=== PATIENT | female | born 1990 | race Caucasian/White ===

== ENCOUNTER 2020-06-30 13:47 | Emergency (ER) | payer OTHER ==
--- NOTE | 2020-06-30 13:56 | PDOC ---
Rapid Medical Evaluation Time Seen by Provider: 06/30/20 13:49 Medical Evaluation: Allergies Allergy/AdvReac Type Severity Reaction Status Date / Time diphenhydramine HCl Allergy Intermediate Itching Verified 08/30/13 18:27 [From Benadryl] latex Allergy Intermediate Rash Verified 08/30/13 18:28 mushroom Allergy Severe Difficulty Uncoded 08/30/13 18:27 Breathing 06/30/20 13:51 I have performed a brief in-person evaluation of this patient The patient presents with a chief complaint of: SI. H/o anxiety, PTSD, bipolar, seizures, asthma. Pt BIB for SI. Pt states at 3pm yesterday, she took 90, 1mg tablets of minipress (prazosin) which she takes for her PTSD. Took meds in an attempt to kill herself per pt. Drank ETOH and smoked weed today. Feeling dizzy only. Multiple suicidal attempts in past including pills and cutting. Has lost f/u with psych. Pertinent physical exam findings:crying at triage, continues to have SI I have ordered the following:ekg, labs, 1:1 The patient will proceed to the ED for further evaluation Discharge Disposition - Diagnosis Suicidal behavior Qualifiers: Attempted self-injury: with attempted self-injury Qualified Code(s): T14.91XA - Suicide attempt, initial encounter - Referrals - Patient Instructions - Post Discharge Activity
[2020-06-30 13:59] VITALS: BMI 38.0
--- NOTE | 2020-06-30 14:30 | PDOC ---
History of Present Illness - General Chief Complaint: Suicidal Stated Complaint: DETOX Time Seen by Provider: 06/30/20 13:49 - History of Present Illness Initial Comments: 06/30/20 14:28 30F with PMH seizure disorder, asthma, bipolar I, anxiety, PTSD, brought to ED by after a suicide attempt yesterday at 3pm, when she ingested 90 1mg tablets of prazosin. States she has been depressed recently with sad mood and decreased interest because she misses her kids, and has also been using cocaine, alcohol, marijuana, and benzos. Still has SI, and has had previous attempts. Denies AH/VH or HI. No gun at home. Is in the middle of transferring her outpatient psych/rehab program. PMH: as above PSH: cholecystecomy, Meds: prazosin, gabapentin, keppra, abilify, seroquel, klonapin, hydroxyzine Allergies Allergy/AdvReac Type Severity Reaction Status Date / Time diphenhydramine HCl Allergy Intermediate Itching Verified 06/30/20 13:53 [From Benadryl] latex Allergy Intermediate Rash Verified 06/30/20 13:53 mushroom Allergy Severe Difficulty Uncoded 06/30/20 13:53 Breathing ROS GENERAL/CONSTITUTIONAL: No fever or chills. No weakness. HEAD, EYES, EARS, NOSE AND THROAT: No change in vision. No ear pain or discharge. No sore throat. CARDIOVASCULAR: No chest pain or shortness of breath RESPIRATORY: No cough, wheezing, or hemoptysis. GASTROINTESTINAL: No nausea, vomiting, diarrhea or constipation. GENITOURINARY: No dysuria, frequency, or change in urination. MUSCULOSKELETAL: No joint or muscle swelling or pain. No neck or back pain. SKIN: No rash NEUROLOGIC: No headache, vertigo, loss of consciousness, or change in strength/sensation. ENDOCRINE: No increased thirst. No abnormal weight change HEMATOLOGIC/LYMPHATIC: No anemia, easy bleeding, or history of blood clots. ALLERGIC/IMMUNOLOGIC: No hives or skin allergy. PE GENERAL: Awake, alert, and fully oriented, in no acute distress HEAD: No signs of trauma, normocephalic, atraumatic EYES: PERRLA, EOMI, sclera anicteric, conjunctiva clear ENT: Auricles normal inspection, hearing grossly normal, nares patent, oropharynx clear without exudates. Moist mucosa NECK: Normal ROM, supple, no lymphadenopathy, JVD, or masses LUNGS: No distress, speaks full sentences, clear to auscultation bilaterally HEART: Regular rate and rhythm, normal S1 and S2, no murmurs, rubs or gallops, peripheral pulses normal and equal bilaterally. ABDOMEN: Soft, nontender, normoactive bowel sounds. No guarding, no rebound. N o masses EXTREMITIES : Normal inspection, Normal range of motion, no edema. No clubbing or cyanosis. NEUROLOGICAL: Cranial nerves II through XII grossly intact. Normal speech, normal gait, no focal sensorimotor deficits SKIN: Warm, Dry, normal turgor, no rashes or lesions noted Vital Signs Temp Pulse Resp BP Pulse Ox 111 H 20 114/71 99 06/30/20 13:57 06/30/20 13:57 06/30/20 13:57 06/30/20 13:57 30F with PMH seizure disorder, asthma, bipolar I, anxiety, PTSD, brought to ED by after a suicide attempt yesterday at 3pm, when she ingested 90 1mg tablets of prazosin. Will get EKG and labs for medical clearance, psych consult, and anticipate transfer to inpatient psych facility. 06/30/20 15:46 Dr. Milian left a voicemail for Dr. Manning, psychiatry, asking for a call back. 06/30/20 16:46 Dr. Milian got a call from Dr. Manning, who will come and see the patient. EKG: Labs: notable for WBC 12.8 w/o shift, alk phos 124, CK 233, pos THC, alcohol 72.9, negative cocaine/benzos Laboratory Tests 06/30/20 06/30/20 06/30/20: 16:00 16:00 WBC 12.8 H RBC 4.70 Hgb 12.6 Hct 37.7 MCV 80.2 MCH 26.8 MCHC 33.4 RDW 14.6 Plt Count 287 D MPV 8.8 Absolute Neuts (auto) 9.0 H Neutrophils % 70.6 Lymphocytes % 22.9 Monocytes % 5.5 Eosinophils % 0.6 Basophils % 0.4 D Nucleated RBC % 0 Sodium Potassium Chloride Carbon Dioxide Anion Gap BUN Creatinine Est GFR (CKD-EPI)AfAm Est GFR (CKD-EPI)NonAf Random Glucose Calcium Total Bilirubin AST ALT Alkaline Phosphatase Creatine Kinase Creatine Kinase Index CK-MB (CK-2) Troponin I Total Protein Albumin Lipase Urine Color Yellow Urine Appearance Clear Urine pH 6.0 Ur Specific [place] 1.011 Urine Protein Negative Urine Glucose (UA) Negative Urine Ketones Negative Urine Blood Negative Urine Nitrite Negative Urine Bilirubin Negative Urine Urobilinogen 0.2 Ur Leukocyte Esterase Negative Urine HCG, Qual Negative Salicylates < 1.7 L Opiates Screen Methadone Screen Acetaminophen < 2.0 Barbiturate Screen Phencyclidine Screen Ur Amphetamines Screen MDMA (Ecstasy) Screen Benzodiazepines Screen Cocaine Screen U Marijuana (THC) Screen Alcohol, Quantitative 06/30/20 06/30/20 06/30/20 16:00 16:00 16:00 WBC RBC Hgb Hct MCV MCH MCHC RDW Plt Count MPV Absolute Neuts (auto) Neutrophils % Lymphocytes % Monocytes % Eosinophils % Basophils % Nucleated RBC % Sodium 142 Potassium 3.7 Chloride 109 H Carbon Dioxide 25 Anion Gap 8 BUN 5.1 L Creatinine 1.0 Est GFR (CKD-EPI)AfAm 86.33 Est GFR (CKD-EPI)NonAf 74.49 Random Glucose 107 H Calcium 8.1 L Total Bilirubin 0.4 AST 32 ALT 34 Alkaline Phosphatase 124 H Creatine Kinase 233 H Creatine Kinase Index 0.6 CK-MB (CK-2) 1.4 Troponin I < 0.02 Total Protein 6.8 Albumin 3.3 L Lipase 82 Urine Color Urine Appearance Urine pH Ur Specific [place] Urine Protein Urine Glucose (UA) Urine Ketones Urine Blood Urine Nitrite Urine Bilirubin Urine Urobilinogen Ur Leukocyte Esterase Urine HCG, Qual Salicylates Opiates Screen Negative Methadone Screen Negative Acetaminophen Barbiturate Screen Negative Phencyclidine Screen Negative Ur Amphetamines Screen Negative MDMA (Ecstasy) Screen Negative Benzodiazepines Screen Negative Cocaine Screen Negative U Marijuana (THC) Screen Positive A* Alcohol, Quantitative 72.9 H 06/30/20 19:20 Called [facility] transfer center and was informed that they do not have any beds 06/30/20 18:34 Received call from Poison Control. No concerns 06/30/20 21:19 Signed out to night team, dispo pending. Sign out for night team: Call [facility] social work in the AM for help with transfer. Call [facility] at 945am to see if they can take the transfer. Past History - Medical History Allergies/Adverse Reactions: Allergies Allergy/AdvReac Type Severity Reaction Status Date / Time diphenhydramine HCl Allergy Intermediate Itching Verified 06/30/20 13:53 [From Benadryl] latex Allergy Intermediate Rash Verified 06/30/20 13:53 mushroom Allergy Severe Difficulty Uncoded 06/30/20 13:53 Breathing Asthma: No Cancer: No Cardiac Disorders: No COPD: No Diabetes: No HTN: No Seizures: No Thyroid Disease: No - Reproductive History Is Patient Now?: No - Psycho-Social/Smoking History Smoking History: Current every day smoker Have you smoked in the past 12 months: No Number of Cigarettes Smoked Daily: 5 Information on smoking cessation initiated: No - Substance Abuse Hx (Audit-C & DAST Scrn) How often the patient has a drink containing alcohol: 2-3 times / week Number of drinks the patient has on a typical day: 5 or 6 How often the patient has six or more drinks on one occasion: Weekly Score: In Men: 4 or > Positive; In Women: 3 or > Positive: 8 Screen Result (Pos requires Nsg. Audit-10AR): Positive In the last yr the pt used illegal drug/Rx for NonMed reason: Yes Score: Yes response is considered Positive: 1 Screen Result (Positive result requires Nsg. DAST-10): Positive *Physical Exam - Vital Signs Last Vital Signs Temp Pulse Resp BP Pulse Ox 111 H 20 114/71 99 06/30/20 13:57 06/30/20 13:57 06/30/20 13:57 06/30/20 13:57 ED Treatment Course - LABORATORY CBC & Chemistry Diagram: 06/30/20 16:00 06/30/20 16:00 Discharge - Discharge Information Problems reviewed: Yes Clinical Impression/Diagnosis: Suicidal behavior Qualifiers: Attempted self-injury: with attempted self-injury Qualified Code(s): T14.91XA - Suicide attempt, initial encounter Bipolar disorder Qualifiers: Active/Remission status: currently active Current bipolar episode type: depressed Current episode severity: severe Psychotic features: without psychotic features Qualified Code(s): F31.4 - Bipolar disorder, current episode depressed, severe, without psychotic features Condition: Guarded - Follow up/Referral - Patient Discharge Instructions - Post Discharge Activity Work/Back to School Note: My Personal Safety Plan
[2020-06-30] MEDS ORDERED: SODIUM CHLORIDE 0.9% 500 ML INFUS.BAG IV ONE (14:53)
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
[2020-06-30 16:38] LABS: BASO % 0.4 % (0-2.0); EOS % 0.6 % (0-4.5); HEMATOCRIT 37.7 % (32.4-45.2); HEMOGLOBIN 12.6 GM/dL (10.7-15.3); LYMPH % 22.9 % (8-40); MCH 26.8 pg (25.7-33.7); MCHC 33.4 g/dl (32.0-36.0); MEAN CELL VOLUME 80.2 fl (80-96); MEAN PLT VOLUME 8.8 fl (7.5-11.1); MONO % 5.5 % (3.8-10.2); NEUT % 70.6 % (42.8-82.8); PLATELET COUNT 287 K/MM3 (134-434); RDW 14.6 % (11.6-15.6); WHITE BLOOD COUNT 12.8 K/mm3 (4.0-10.0)
[2020-06-30 16:45] LABS: HCG,QUALITATIVE URINE Negative
[2020-06-30 16:53] LABS: COCAINE, UR NEGATIVE ng/ml (CUTOFF=300); METHADONE, UR NEGATIVE ng/ml (CUTOFF=300); OPIATES, URI NEGATIVE ng/ml (CUTOFF=300); PHENCYCLIDINE,URINE NEGATIVE ng/ml (CUTOFF=25); URINE AMPHETAMINES NEGATIVE ng/ml (CUTOFF=500); URINE BARBITURATES NEGATIVE ng/ml (CUTOFF=200); URINE BENZODIAZEPINES NEGATIVE ng/ml (CUTOFF=200)
[2020-06-30 17:04] LABS: ALBUMIN 3.3 g/dl (3.4-5.0); ALK PHOS 124 U/L (45-117); ANION GAP 8 MMOL/L (8-16); BILIRUBIN,TOTAL 0.4 mg/dL (0.2-1); BLOOD UREA NITROGEN 5.1 mg/dL (7-18); CALCIUM 8.1 mg/dL (8.5-10.1); CHLORIDE 109 mmol/L (98-107); CO2 25 mmol/L (21-32); GLUCOSE,RANDOM 107 mg/dL (74-106); LIPASE 82 U/L (73-393); POTASSIUM 3.7 mmol/L (3.5-5.1); SGOT/AST 32 U/L (15-37); SGPT/ALT 34 U/L (13-61); SODIUM 142 mmol/L (136-145); TOT PROT 6.8 g/dl (6.4-8.2)
--- NOTE | 2020-06-30 17:42 | CON.PSY ---
Psychiatry Consult Chief Complaint: 30 Year old maría estrada with a History of Major Depression and Alcohol Dependence admitted following an overdose of Prazasin tabs which takes for PTSD, Patient said she wants to Kill Herself.. Was in [facility] about 5 months ago for 2 weeks for similar issues.. Symptoms: reports: Depressed Mood, Suicidality, Irritability - Previous Psychiatric Treatment Outpatient: Less than 6 mos ago Inpatient: 2 or more prior admissions - Previous Substance Abuse Treatment Outpatient: More than 6 mos ago Inpatient: One prior admission, 2 or more prior admissions - Reason for Previous Treatment Reason for Previous Treatment: Major Depression, Alcohol Abuse - Current Medications Current Medications: Active Medications Chlordiazepoxide HCl (Librium -) 50 mg PO BID ELIZABETH - Allergies Allergies: Allergies Allergy/AdvReac Type Severity Reaction Status Date / Time diphenhydramine HCl Allergy Intermediate Itching Verified 06/30/20 13:53 [From Benadryl] latex Allergy Intermediate Rash Verified 06/30/20 13:53 mushroom Allergy Severe Difficulty Uncoded 06/30/20 13:53 Breathing - Current Living Status Usual Living Arrangement: Alone - Current Mental Status Evaluation Appearance: Disheveled Attitude: Guarded - Affect Affect: Constrictive Appropriateness: Appropriate to Content - Mood Mood: Depressed - Speech/Language Expressive: Coherent - Psychomotor Activity Psychomotor Activity: Hyperactive - Thought Process Thought Process: Intact - Thought Content Hallucinations: Absent Delusions: Absent - Self Perception Self Perception: No Impairment - Cognition Attention: Alert Orientation: Time Memory, Immediate Recall: Intact Memory, Short Term: 3/3 Memory, Remote with Promptin/3 - Concentration Serial Sevens Intact: Yes Simple Calculations Intact: Yes - Abstraction Proverb Interpretation: Intact Judgement: Moderately Impaired - Insight Insight: Impaired - Impulse Control Impulse Control: Moderately Impaired - Suicidal Ideation Suicidal Ideation: Yes (drug overdose) - Homicidal Ideation Homicidal Ideation: No Assessment/Plan 1) Transfer to In Patient Psych for Drug Overdose and major Depression. on a 2 PC.
--- NOTE | 2020-06-30 18:17 | PDOC ---
*Physical Exam - Vital Signs Last Vital Signs Temp Pulse Resp BP Pulse Ox 111 H 20 114/71 99 06/30/20 13:57 06/30/20 13:57 06/30/20 13:57 06/30/20 13:57 ED Treatment Course - LABORATORY CBC & Chemistry Diagram: 06/30/20 16:00 06/30/20 16:00 - ADDITIONAL ORDERS Additional order review: Laboratory Results 06/30/20 06/30/20 06/30/20 16:00 16:00 16:00 Sodium 142 Potassium 3.7 Chloride 109 H Carbon Dioxide 25 Anion Gap 8 BUN 5.1 L Creatinine 1.0 Est GFR (CKD-EPI)AfAm 86.33 Est GFR (CKD-EPI)NonAf 74.49 Random Glucose 107 H Calcium 8.1 L Total Bilirubin 0.4 AST 32 ALT 34 Alkaline Phosphatase 124 H Creatine Kinase 233 H Creatine Kinase Index 0.6 CK-MB (CK-2) 1.4 Troponin I < 0.02 Total Protein 6.8 Albumin 3.3 L Lipase 82 Urine HCG, Qual Salicylates Opiates Screen Negative Methadone Screen Negative Acetaminophen Barbiturate Screen Negative Phencyclidine Screen Negative Ur Amphetamines Screen Negative MDMA (Ecstasy) Screen Negative Benzodiazepines Screen Negative Cocaine Screen Negative U Marijuana (THC) Screen Positive A* Alcohol, Quantitative 72.9 H 06/30/20 06/30/20 16:00 15:20 Sodium Potassium Chloride Carbon Dioxide Anion Gap BUN Creatinine Est GFR (CKD-EPI)AfAm Est GFR (CKD-EPI)NonAf Random Glucose Calcium Total Bilirubin AST ALT Alkaline Phosphatase Creatine Kinase Creatine Kinase Index CK-MB (CK-2) Troponin I Total Protein Albumin Lipase Urine HCG, Qual Negative Salicylates < 1.7 L Opiates Screen Methadone Screen Acetaminophen < 2.0 Barbiturate Screen Phencyclidine Screen Ur Amphetamines Screen MDMA (Ecstasy) Screen Benzodiazepines Screen Cocaine Screen U Marijuana (THC) Screen Alcohol, Quantitative 06/30/20 16:00 RBC 4.70 MCV 80.2 MCHC 33.4 RDW 14.6 MPV 8.8 Neutrophils % 70.6 Lymphocytes % 22.9 Monocytes % 5.5 Eosinophils % 0.6 Basophils % 0.4 D - Medications Given in the ED: ED Medications Discontinued Medications Generic Name Dose Route Start Last Admin Trade Name Freq PRN Reason Stop Dose Admin Sodium Chloride 1,000 ml 06/30/20 14:53 06/30/20 15:00 Normal Saline - IV 06/30/20 14:54 1,000 ml ONCE ONE Administration Medical Decision Making - Medical Decision Making 06/30/20 18:15 Dr. Manning came and evaluated the patient, agreed patient needs inpatient psych hospitalization for depression, suicide attempt, and drug detox - Calling [facility] to initiate transfer 06/30/20 18:20 - Transfer center at [facility] said they do not do psychiatry transfers - I told them I transferred a psychiatry patient this morning - Transfered to ER to speak with [facility] - Said there ius no psychiatrist at the hospital and asked me to call back. - I requested for the psychiatrist to call our ER when they arrive - [phone]: direct number of [facility] 06/30/20 18:24 - Said they will call back when the psychiatrist returns from patient rounds. 06/30/20 18:30 - ED residential appraiser called back ED Dr. Tennille deluna [phone] - ask to speak with Dr. Wade (He decides who is accepted for transfer) - must call in morning 9:45 tomorrow morning? "Must call [facility] in morning" Discharge - Discharge Information Problems reviewed: Yes Clinical Impression/Diagnosis: Substance abuse Suicidal behavior Qualifiers: Attempted self-injury: with attempted self-injury Qualified Code(s): T14.91XA - Suicide attempt, initial encounter Bipolar disorder Qualifiers: Active/Remission status: currently active Current bipolar episode type: depressed Current episode severity: severe Psychotic features: without psychotic features Qualified Code(s): F31.4 - Bipolar disorder, current episode depressed, severe, without psychotic features Condition: Fair Disposition: HOME - Follow up/Referral - Patient Discharge Instructions Additional Instructions: You were seen in the ER after a suicide attempt. We did an EKG and labs and determined that there was no emergent medical problem. You were seen by a psychiatrist, who cleared you to go home. You should go to [facility] for detox at [address] [place] [address]. You had some laboratory abnormalities that you should follow up with your PCP about, and we gave you a copy of your results. Please return to the ER if you have suicidal thoughts, lightheadedness, loss of consciousness, or any other reason. - Post Discharge Activity Work/Back to School Note: My Personal Safety Plan
[2020-06-30 19:38] LABS: URINE APPEARANCE CLEAR; URINE BILIRUBIN NEGATIVE (NEGATIVE); URINE COLOR YELLOW; URINE GLUCOSE (UA) NEGATIVE (NEGATIVE); URINE KETONE NEGATIVE (NEGATIVE); URINE LEUK ESTERASE NEGATIVE (NEGATIVE); URINE NITRITE NEGATIVE (NEGATIVE); URINE PROTEIN NEGATIVE (NEGATIVE); URINE UROBILINOGEN 0.2 mg/dL (0.2-1.0)
[2020-06-30] MEDS ORDERED: chlordiazePOXIDE HCL 25 MG CAPSULE ONE (22:06)
[2020-06-30] MEDS: chlordiazePOXIDE HCL 25 MG CAPSULE PO SCH (22:10)
--- NOTE | 2020-06-30 23:01 | PDOC ---
*Physical Exam - Vital Signs Last Vital Signs Temp Pulse Resp BP Pulse Ox 111 H 20 114/71 100 06/30/20 13:57 06/30/20 13:57 06/30/20 13:57 06/30/20 16:56 ED Treatment Course - LABORATORY CBC & Chemistry Diagram: 06/30/20 16:00 06/30/20 16:00 - ADDITIONAL ORDERS Additional order review: Laboratory Results 06/30/20 06/30/20 06/30/20 16:00 16:00 16:00 Sodium 142 Potassium 3.7 Chloride 109 H Carbon Dioxide 25 Anion Gap 8 BUN 5.1 L Creatinine 1.0 Est GFR (CKD-EPI)AfAm 86.33 Est GFR (CKD-EPI)NonAf 74.49 Random Glucose 107 H Calcium 8.1 L Total Bilirubin 0.4 AST 32 ALT 34 Alkaline Phosphatase 124 H Creatine Kinase 233 H Creatine Kinase Index 0.6 CK-MB (CK-2) 1.4 Troponin I < 0.02 Total Protein 6.8 Albumin 3.3 L Lipase 82 Urine Color Urine Appearance Urine pH Ur Specific [place] Urine Protein Urine Glucose (UA) Urine Ketones Urine Blood Urine Nitrite Urine Bilirubin Urine Urobilinogen Ur Leukocyte Esterase Urine HCG, Qual Salicylates Opiates Screen Negative Methadone Screen Negative Acetaminophen Barbiturate Screen Negative Phencyclidine Screen Negative Ur Amphetamines Screen Negative MDMA (Ecstasy) Screen Negative Benzodiazepines Screen Negative Cocaine Screen Negative U Marijuana (THC) Screen Positive A* Alcohol, Quantitative 72.9 H 06/30/20 06/30/20 16:00 15:20 Sodium Potassium Chloride Carbon Dioxide Anion Gap BUN Creatinine Est GFR (CKD-EPI)AfAm Est GFR (CKD-EPI)NonAf Random Glucose Calcium Total Bilirubin AST ALT Alkaline Phosphatase Creatine Kinase Creatine Kinase Index CK-MB (CK-2) Troponin I Total Protein Albumin Lipase Urine Color Yellow Urine Appearance Clear Urine pH 6.0 Ur Specific [place] 1.011 Urine Protein Negative Urine Glucose (UA) Negative Urine Ketones Negative Urine Blood Negative Urine Nitrite Negative Urine Bilirubin Negative Urine Urobilinogen 0.2 Ur Leukocyte Esterase Negative Urine HCG, Qual Negative Salicylates < 1.7 L Opiates Screen Methadone Screen Acetaminophen < 2.0 Barbiturate Screen Phencyclidine Screen Ur Amphetamines Screen MDMA (Ecstasy) Screen Benzodiazepines Screen Cocaine Screen U Marijuana (THC) Screen Alcohol, Quantitative 06/30/20 16:00 RBC 4.70 MCV 80.2 MCHC 33.4 RDW 14.6 MPV 8.8 Neutrophils % 70.6 Lymphocytes % 22.9 Monocytes % 5.5 Eosinophils % 0.6 Basophils % 0.4 D - Medications Given in the ED: ED Medications Discontinued Medications Generic Name Dose Route Start Last Admin Trade Name Freq PRN Reason Stop Dose Admin Sodium Chloride 1,000 ml 06/30/20 14:53 06/30/20 15:00 Normal Saline - IV 06/30/20 14:54 1,000 ml ONCE ONE Administration Medical Decision Making - Medical Decision Making 06/30/20 23:01 Pt received on s/o from Dr. Bermudez 30F hx of bipolar disorder and polysubstance use presenting today for suicide attempt. Took 90 tabs of prazosin 1 mg. Case d/w poison control with recommendations to watch for hypotension. Tox screen positive for marijuana. Social ETOH use. Pt evaluated by Dr. Manning and requires inpatient psych hospitalization. Will have social work arrange placement in the morning. 07/01/20 07:00 Pt s/o to Dr. Waldrop pending social work placement. Discharge - Discharge Information Problems reviewed: Yes Clinical Impression/Diagnosis: Suicidal behavior Qualifiers: Attempted self-injury: with attempted self-injury Qualified Code(s): T14.91XA - Suicide attempt, initial encounter Bipolar disorder Qualifiers: Active/Remission status: currently active Current bipolar episode type: depressed Current episode severity: severe Psychotic features: without psychotic features Qualified Code(s): F31.4 - Bipolar disorder, current episode depressed, severe, without psychotic features Condition: Guarded - Follow up/Referral - Patient Discharge Instructions - Post Discharge Activity Work/Back to School Note: My Personal Safety Plan
--- NOTE | 2020-07-01 09:07 | EKG ---
Test Reason : Blood Pressure : / mmHG Vent. Rate : 104 BPM Atrial Rate : 104 BPM P-R Int : 146 ms QRS Dur : 078 ms QT Int : 370 ms P-R-T Axes : 031 056 033 degrees QTc Int : 486 ms SINUS TACHYCARDIA WITH PREMATURE ATRIAL COMPLEXES OTHERWISE NORMAL ECG NO PREVIOUS ECGS AVAILABLE Confirmed by MD ZO, DENNYS ([id number]) on 07/01/2020 9:06:59 AM Referred By: Confirmed By:DENNYS PATHAK MD
[2020-07-01] MEDS ORDERED: LORazepam 2 MG/ML SDV VIAL ONE (09:54)
[2020-07-01] MEDS ORDERED: HALOPERIDOL LACTATE 5 MG/ML ONE (09:55)
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
[2020-07-01] MEDS ORDERED: HALOPERIDOL LACTATE 5 MG/ML IM ONE (10:05)
[2020-07-01] MEDS ORDERED: chlordiazePOXIDE HCL 25 MG CAPSULE ONE ×2 (10:26→23:01)
[2020-07-01] MEDS ORDERED: levETIRAcetam 500 MG/5 ML INJECTION VIAL IVPB ONE ×2 (10:36→12:12)
[2020-07-01] MEDS: chlordiazePOXIDE HCL 25 MG CAPSULE PO SCH ×2 (10:40→23:04)
[2020-07-02 07:34] VITALS: TEMP 98.2
--- NOTE | 2020-07-02 08:52 | PDOC ---
*Physical Exam - Vital Signs Last Vital Signs Temp Pulse Resp BP Pulse Ox 98.2 F 75 16 98/48 L 99 07/02/20 06:50 07/02/20 06:50 07/02/20 06:50 07/02/20 06:50 07/02/20 06:50 - Physical Exam 07/02/20 08:51 Patient is a 30-year-old female with history of alcohol abuse, suicidal with major depression, presented to the ER after a suicide attempt. Evaluated by psych and recommended for inpatient psych admission by 2 PC consent. Patient is medically cleared for transfer, pending psych placement. ED Treatment Course - LABORATORY CBC & Chemistry Diagram: 06/30/20 16:00 06/30/20 16:00 - ADDITIONAL ORDERS Additional order review: 06/30/20 16:00 RBC 4.70 MCV 80.2 MCHC 33.4 RDW 14.6 MPV 8.8 Neutrophils % 70.6 Lymphocytes % 22.9 Monocytes % 5.5 Eosinophils % 0.6 Basophils % 0.4 D - Medications Given in the ED: ED Medications Discontinued Medications Generic Name Dose Route Start Last Admin Trade Name Jatinq PRN Reason Stop Dose Admin Haloperidol 5 mg 07/01/20 10:05 07/01/20 10:10 Haldol Injection (Fast Acting) - IM 07/01/20 10:06 5 mg ONCE ONE Administration Levetiracetam 1,000 mg 07/01/20 12:12 07/01/20 10:45 Keppra Injection - IVPB 07/01/20 12:13 1,000 mg ONCE ONE Administration Lorazepam 2 mg 07/01/20 10:05 07/01/20 10:10 Ativan Injection - IM 07/01/20 10:06 2 mg ONCE ONE Administration Sodium Chloride 1,000 ml 06/30/20 14:53 06/30/20 15:00 Normal Saline - IV 06/30/20 14:54 1,000 ml ONCE ONE Administration Discharge - Discharge Information Problems reviewed: Yes Clinical Impression/Diagnosis: Suicidal behavior Qualifiers: Attempted self-injury: with attempted self-injury Qualified Code(s): T14.91XA - Suicide attempt, initial encounter Bipolar disorder Qualifiers: Active/Remission status: currently active Current bipolar episode type: depressed Current episode severity: severe Psychotic features: without psychotic features Qualified Code(s): F31.4 - Bipolar disorder, current episode depressed, severe, without psychotic features Condition: Guarded - Follow up/Referral - Patient Discharge Instructions - Post Discharge Activity Work/Back to School Note: My Personal Safety Plan
[2020-07-02] MEDS ORDERED: chlordiazePOXIDE HCL 25 MG CAPSULE ONE (10:08)
[2020-07-02] MEDS: chlordiazePOXIDE HCL 25 MG CAPSULE PO SCH (10:11)
--- NOTE | 2020-07-02 11:35 | PN ---
Progress Note (short form) - Note Progress Note: Patient seen for Psych evaluation. She hasbeen cooperative while waiting for transferto Psych for Suicidal ideas and behaviour.. She no longer suicidal or hav e any plans to Kill herself.. Not psychotic, hallucinating or Delusional. Cognition is intact;; patien t wants to go for Detox, which she claims was her original request.. REC: 1) d/c 1:1. 2) No need for Transfer to In Patient Psych unit.. 3) Make arrangements for Detox.
[2020-07-02] MEDS ORDERED: levETIRAcetam 500 MG TABLET (FP) PO ONE ×2 (11:39→11:43)
[2020-07-02 11:43] VITALS: BP 113/69; PULSE 70
--- NOTE | 2020-07-02 11:46 | PDOC ---
*Physical Exam - Vital Signs Last Vital Signs Temp Pulse Resp BP Pulse Ox 98.2 F 75 16 98/48 L 99 07/02/20 06:50 07/02/20 06:50 07/02/20 06:50 07/02/20 06:50 07/02/20 06:50 ED Treatment Course - LABORATORY CBC & Chemistry Diagram: 06/30/20 16:00 06/30/20 16:00 - ADDITIONAL ORDERS Additional order review: 06/30/20 16:00 RBC 4.70 MCV 80.2 MCHC 33.4 RDW 14.6 MPV 8.8 Neutrophils % 70.6 Lymphocytes % 22.9 Monocytes % 5.5 Eosinophils % 0.6 Basophils % 0.4 D - Medications Given in the ED: ED Medications Discontinued Medications Generic Name Dose Route Start Last Admin Trade Name Freq PRN Reason Stop Dose Admin Haloperidol 5 mg 07/01/20 10:05 07/01/20 10:10 Haldol Injection (Fast Acting) - IM 07/01/20 10:06 5 mg ONCE ONE Administration Levetiracetam 1,000 mg 07/01/20 12:12 07/01/20 10:45 Keppra Injection - IVPB 07/01/20 12:13 1,000 mg ONCE ONE Administration Lorazepam 2 mg 07/01/20 10:05 07/01/20 10:10 Ativan Injection - IM 07/01/20 10:06 2 mg ONCE ONE Administration Sodium Chloride 1,000 ml 06/30/20 14:53 06/30/20 15:00 Normal Saline - IV 06/30/20 14:54 1,000 ml ONCE ONE Administration ED Progress Note - Progress Note Progress Note: 07/02/20 11:47 Patient requests detox and has been cleared by psych. Will DC and plan for admission to [facility]. Discharge - Discharge Information Problems reviewed: Yes Clinical Impression/Diagnosis: Substance abuse Suicidal behavior Qualifiers: Attempted self-injury: with attempted self-injury Qualified Code(s): T14.91XA - Suicide attempt, initial encounter Bipolar disorder Qualifiers: Active/Remission status: currently active Current bipolar episode type: depressed Current episode severity: severe Psychotic features: without psychotic features Qualified Code(s): F31.4 - Bipolar disorder, current episode depressed, severe, without psychotic features Condition: Fair Disposition: HOME - Admission No - Follow up/Referral - Patient Discharge Instructions Additional Instructions: You were seen in the ER after a suicide attempt. We did an EKG and labs and determined that there was no emergent medical problem. You were seen by a psychiatrist, who cleared you to go home. You should go to [facility] for detox at [address] [place] [address]. You had some laboratory abnormalities that you should follow up with your PCP about, and we gave you a copy of your results. Please return to the ER if you have suicidal thoughts, lightheadedness, loss of consciousness, or any other reason.
== END 2020-07-02 12:03 | disposition home or self-care (01) ==
LOC: JER 13:47 → JERBED 07-02 10:40 → UNDOADMIN 07-02 10:40 → JER 07-02 12:03
PROC: 3E033GC Introduction of Other Therapeutic Substance into Peripheral Vein, Percutaneous Approach (ICD-10-PCS; principal; 2020-06-30)
PROC: 3E023NZ Introduction of Analgesics, Hypnotics, Sedatives into Muscle, Percutaneous Approach (ICD-10-PCS; 2020-06-30)
PROC: 3E023GC Introduction of Other Therapeutic Substance into Muscle, Percutaneous Approach (ICD-10-PCS; 2020-06-30)
DX: F31.4 Bipolar disorder, current episode depressed, severe, without psychotic features (principal); T14.91XA Suicide attempt, initial encounter; F19.10 Other psychoactive substance abuse, uncomplicated
CPT/HCPCS: 36415; 80053; 80307; 81003; 82550; 82553; 83690; 84484; 84703; 85025; 93005; 93010; 99284-25; U0003